=== PATIENT | male | born 1975 | race Caucasian/White ===

== ENCOUNTER 2017-04-09 23:52 | Emergency (ER) | payer OTHER, BC ==
[~2017-04-09] VITALS: Ht 180.3 cm; Wt 93.1 kg
[~2017-04-09 23:52] MED LIST: MOTRIN800 MG PO; ULTRACET1 TABLET PO; VALIUM5 MG PO
[2017-04-10] MEDS ORDERED: FLEXERIL10 MG PO (02:53)
[2017-04-10] MEDS ORDERED: NAPROXEN500 MG PO (02:53)
[2017-04-10 03:08] VITALS: BP 128/88
== END 2017-04-10 03:10 | disposition home or self-care (01) ==
LOC: EXP 23:52 → EME 23:52 → EXP 04-10 03:10
DX: S13.4XXA Sprain of ligaments of cervical spine, initial encounter (principal); S20.219A Contusion of unspecified front wall of thorax, initial encounter; M54.5 Low back pain; V49.60XA Unspecified car occupant injured in collision with unspecified motor vehicles in traffic accident, initial encounter
CPT/HCPCS: 70450; 71020; 72125; 99281; 99283